=== PATIENT | female | born 1945 | race Caucasian/White ===

== ENCOUNTER 2019-03-16 22:51 | Inpatient (IN) ==
[2019-03-17] MEDS ORDERED: ACETAMINOPHEN 325 MG TABLET PO PRN (00:37)
[2019-03-17] MEDS ORDERED: BISACODYL 5 MG TABLET PO PRN (00:37)
[2019-03-17] MEDS ORDERED: NICOTINE 21 MG/24 HR PATCH TRANSDERM PRN (00:37)
[2019-03-17] MEDS ORDERED: PROMETHAZINE 25 MG/1 ML VIAL IM PRN (00:37)
[2019-03-17] MEDS ORDERED: diphenhydrAMINE CAP 25 MG CAPSULE PO PRN (00:37)
[2019-03-17 00:55] LABS: Apearance,Urine CLEAR (Clear); Bilirubin,Urine Negative (Negative); Blood, Urine Negative (Negative); Glucose,Urine (UA) Negative (Negative); Hyaline Casts,Urine 1 /LPF (0-3); Ketones,Urine 5 mg/dL (Negative); Mucus,Urine Occasional /LPF (Occasional); Nitrite,Urine Negative (Negative); Protein,Urine Negative; RBC,Urine <1 /HPF (0-4); Urine Color Straw (Yellow); Urine Specific Gravity 1.011 (1.001-1.035); Urine Urobilinogen < 2.0 EU/DL (0.2-1.0)
[2019-03-17 00:57] LABS: Basophils # 0.1 10*3/uL (0.0-0.2); Basophils % 0.4 % (0.0-0.8); Hematocrit 39.1 VOL% (35.7-47.0); Hemoglobin 12.6 GM/DL (12.0-16.0); Immature Granulocytes % 0.5 %; Immature Granulocytes Absolute 0.07 #; Lymphocytes # 0.7 10*3/uL (1.4-4.0); Lymphocytes % 5.5 % (21.3-54.2); Mean Corpuscular HGB Conc 32.2 GM/DL (32-36); Mean Corpuscular Volume 96.8 FL (87-102); Mean Platelet Volume 10.9 FL (9.6-12.0); Monocytes % 5.1 % (1.7-12.7); Neutrophils % 88.5 % (38.7-73.9); Platelet Count 181 T/CUMM (130-400); Red Blood Count 4.04 MC/CUMM (3.8-5.5); Red Cell Distribution Width 13.3 % (9.3-17.3); White Blood Count 12.7 T/CUMM (4-12)
[2019-03-17 01:02] LABS: INR 0.9; PT Patient Result 10.2 SECS
[2019-03-17 01:13] LABS: Bilirubin,Total 0.6 MG/DL (0.2-1.0); Calcium 9.3 MG/DL (8.5-10.1); Total Protein 7.5 G/DL (6.4-8.3)
[2019-03-17] MEDS: SODIUM CHLORIDE 0.9% 1,000 ML IV SCH ×2 (01:32→18:09)
[2019-03-17] MEDS: ONDANSETRON 4 MG/2 ML VIAL IV PRN ×3 (01:33→13:49)
[2019-03-17] MEDS: MORPHINE 4 MG/1 ML VIAL IV PRN ×2 (05:20→13:46)
[2019-03-17] MEDS ORDERED: METOCLOPRAMIDE 10 MG/2 ML VIAL IV ONE (07:50)
[2019-03-17] MEDS: PANTOPRAZOLE 40 MG TABLET PO SCH (08:07)
[2019-03-17] MEDS ORDERED: SCOPOLAMINE 1.5 MG PATCH TRANSDERM ONE (09:04)
[2019-03-17] MEDS ORDERED: CLINDAMYCIN INJ 50 ML IV ONE (09:41)
[2019-03-17] MEDS ORDERED: TRANEXAMIC ACID 1,000 MG/10 ML VIAL ONE (10:28)
[2019-03-17] MEDS ORDERED: fentaNYL 100 MCG/2 ML VIAL ONE (12:19)
[2019-03-17] MEDS ORDERED: PROPOFOL 200 MG/20 ML VIAL IV ONE (12:19)
[2019-03-17] MEDS ORDERED: SEVOFLURANE 1 UNIT/15 MINUTE INH ONE (12:19)
[2019-03-17] MEDS ORDERED: ePHEDrine 50 MG/ML AMP ONE (12:19)
[2019-03-17] MEDS ORDERED: LACTATED RINGERS 1,000 ML IV ONE (12:20)
[2019-03-17] MEDS ORDERED: GLYCOPYRROLATE 0.4 MG/2 ML VIAL ONE (12:20)
[2019-03-17] MEDS ORDERED: ROCURONIUM 100 MG/10 ML VIAL IV ONE (12:20)
[2019-03-17] MEDS ORDERED: ONDANSETRON 4 MG/2 ML VIAL ONE (12:20)
[2019-03-17] MEDS ORDERED: ACETAMINOPHEN 1,000 MG/100 ML VIAL IV ONE (12:20)
[2019-03-17] MEDS ORDERED: DEXAMETHASONE 4 MG/1 ML VIAL ONE ×2 (12:20→12:21)
[2019-03-17] MEDS ORDERED: MIDAZOLAM 2 MG/2 ML VIAL ONE (12:20)
[2019-03-17] MEDS ORDERED: PHENYLEPHRINE 1 MG/10 ML SYRINGE IV ONE (12:20)
[2019-03-17] MEDS ORDERED: NEOSTIGMINE 10 MG/10 ML VIAL ONE (12:21)
[2019-03-17] MEDS ORDERED: SODIUM CHLORIDE 0.9% 200 ML IV ONE (12:21)
[2019-03-17] MEDS ORDERED: BUPIVACAINE 0.5% 50 ML VIAL ONE (12:21)
[2019-03-17] MEDS ORDERED: EPINEPHrine 1 MG/ML VIAL ONE (12:21)
[2019-03-17] MEDS: POTASSIUM CHLORIDE RIDER 10 MEQ in PREMIX 1 EACH IV PRN ×4 (17:10→22:24)
[2019-03-18] MEDS: POTASSIUM CHLORIDE RIDER 10 MEQ in PREMIX 1 EACH IV PRN (01:15)
[2019-03-18 04:38] LABS: Basophils % 0.1 % (0.0-0.8); Hematocrit 34.6 VOL% (35.7-47.0); Hemoglobin 11.1 GM/DL (12.0-16.0); Immature Granulocytes % 0.3 %; Immature Granulocytes Absolute 0.03 #; Lymphocytes # 0.5 10*3/uL (1.4-4.0); Lymphocytes % 4.9 % (21.3-54.2); Mean Corpuscular HGB Conc 32.1 GM/DL (32-36); Mean Corpuscular Volume 96.1 FL (87-102); Monocytes % 6.2 % (1.7-12.7); Neutrophils % 88.5 % (38.7-73.9); Platelet Count 162 T/CUMM (130-400); Red Cell Distribution Width 13.4 % (9.3-17.3)
[2019-03-18 05:00] LABS: Lymphocytes 8 % (20-55); Segmented Neutrophils 86 % (50-85); Total Cells Counted 100
[2019-03-18 05:01] LABS: Hypochromasia 1+; Platelet Estimate Adequate
[2019-03-18 05:05] LABS: Calcium 8.6 MG/DL (8.5-10.1); Osmolality,Calculated 280.3 MOS/KG (273-304)
[2019-03-18] MEDS: SODIUM CHLORIDE 0.9% 1,000 ML IV SCH (06:16)
[2019-03-18] MEDS: MORPHINE 4 MG/1 ML VIAL IV PRN (06:18)
[2019-03-18] MEDS: ENOXAPARIN 40 MG/0.4 ML SYRINGE SUBCUT SCH (08:34)
[2019-03-18] MEDS: PANTOPRAZOLE 40 MG TABLET PO SCH (08:35)
[2019-03-19] MEDS: SODIUM CHLORIDE 0.9% 1,000 ML IV SCH ×2 (02:08→07:31)
[2019-03-19 05:26] LABS: Basophils % 0.4 % (0.0-0.8); Eosinophils % 0.3 % (0.00-10.9); Hematocrit 33.4 VOL% (35.7-47.0); Hemoglobin 10.7 GM/DL (12.0-16.0); Immature Granulocytes % 0.3 %; Immature Granulocytes Absolute 0.03 #; Lymphocytes % 10.9 % (21.3-54.2); Mean Corpuscular Volume 97.9 FL (87-102); Monocytes % 8.8 % (1.7-12.7); Neutrophils % 79.3 % (38.7-73.9); Platelet Count 163 T/CUMM (130-400); Red Blood Count 3.41 MC/CUMM (3.8-5.5); Red Cell Distribution Width 13.8 % (9.3-17.3); White Blood Count 9.4 T/CUMM (4-12)
[2019-03-19 05:43] LABS: Calcium 8.4 MG/DL (8.5-10.1); Osmolality,Calculated 281.1 MOS/KG (273-304)
[2019-03-19] MEDS: ENOXAPARIN 40 MG/0.4 ML SYRINGE SUBCUT SCH (08:39)
[2019-03-19] MEDS: PANTOPRAZOLE 40 MG TABLET PO SCH (08:39)
[2019-03-19] MEDS: ONDANSETRON 4 MG/2 ML VIAL IV PRN ×2 (09:25→23:22)
[2019-03-20] MEDS: ONDANSETRON 4 MG/2 ML VIAL IV PRN (05:44)
[2019-03-20 08:31] LABS: Calcium 8.6 MG/DL (8.5-10.1); Osmolality,Calculated 280.1 MOS/KG (273-304)
[2019-03-20] MEDS ORDERED: amLODIPine 5 MG TABLET PO SCH (09:00)
[2019-03-20] MEDS ORDERED: POTASSIUM CHLORIDE 10 MEQ TABLET PO SCH (09:00)
[2019-03-20] MEDS: PANTOPRAZOLE 40 MG TABLET PO SCH (10:05)
[2019-03-20] MEDS: ENOXAPARIN 40 MG/0.4 ML SYRINGE SUBCUT SCH (10:09)
[2019-03-20] MEDS: POTASSIUM CHLORIDE RIDER 10 MEQ in PREMIX 1 EACH IV PRN ×3 (10:14→13:31)
[2019-03-20 12:10] VITALS: BP 178/80
[2019-03-20] MEDS ORDERED: POTASSIUM CHLORIDE 20 MEQ TABLET PO SCH (21:00)
== END 2019-03-20 14:25 | DRG 470 ==
LOC: EDBD → EDUNIT# → N.ED 22:51 → N.EDINP 03-17 00:37 → N.3E 03-17 00:53
PROVIDERS: ADMIT Internal Medicine; ATTEND Internal Medicine